=== PATIENT | male | born 1950 | race Caucasian/White ===

== ENCOUNTER 2016-08-30 14:02 | Emergency (ER) | payer OTHER, BC ==
[~2016-08-30] VITALS: Ht 172.7 cm; Wt 86.1 kg
[~2016-08-30 14:02] MED LIST: ASPIR 8181 M1 PO; ATORVASTATIN CA40 MG PO; CYANOCOBALAM1000 MCG PO; FLOMAX0.4 MG PO; HYDROCODON-ACE1 EAC7 PO; LOTREL 5/201 CAPSULE PO; TOPROL XL25 MG PO; TRICOR145 MG PO; VITAMIN D-32000 UNI2 PO; ZOLOFT50 MG PO
[2016-08-30 15:11] VITALS: BP 150/93
== END 2016-08-30 15:19 | disposition home or self-care (01) ==
LOC: EME 14:02
PROC: 0HQ0XZZ Repair Scalp Skin, External Approach (ICD-10-PCS; principal; 2016-08-30)
DX: S01.01XA Laceration without foreign body of scalp, initial encounter (principal); W01.198A Fall on same level from slipping, tripping and stumbling with subsequent striking against other object, initial encounter; Y92.830 Public park as the place of occurrence of the external cause; E78.5 Hyperlipidemia, unspecified; I10 Essential (primary) hypertension; Z79.82 Long term (current) use of aspirin
CPT/HCPCS: 99281; 99284